=== PATIENT | female | born 1990 | race Caucasian/White ===

== ENCOUNTER 2018-02-20 16:53 | Emergency (ER) | payer MEDICAID, SELFPAY ==
[2018-02-20 16:54] VITALS: BP 118/76; PULSE 91; RESP 16; TEMP 36.2; O2SAT 99; BMI 25.5
[2018-02-20 17:36] LABS: Mucous, Urine 0 SEEN /hpf (<or=2+); Red Blood Cells-Urine 0 SEEN /hpf (0-5)
[2018-02-20 17:44] LABS: Color, Urine Yellow (Yellow); Glucose, Dipstick Normal (Normal); Ketone-Dipstick Negative (Negative); Leukocyte Esterase-Dipstick 500 /ul (Negative); Nitrite-Dipstick Negative (Negative); Occult Blood-Urine Negative /ul (Negative); Protein-Dipstick 15 mg/dl (Negative); Specific Gravity, Urine 1.015 (1.002-1.030); Urine Bilirubin Dipstick Negative (Negative); Urine Clarity Sl. Cloudy (Clear); Urine Urobilinogen Normal (Normal)
[2018-02-20 17:47] LABS: Internal QC Validated? YES +Cl - CLEAR BKGD; Pregnancy, Urine Negative Negative
[2018-02-20 18:04] LABS: Amorphous Sediment 2+; Squamous Epithelial Cells - UA 10-25 SEEN /hpf (5-10); White Blood Cells 10-25 SEEN /hpf (0-5)
[2018-02-20 18:06] LABS: Bacteria RARE /hpf (None Seen)
--- NOTE | 2018-02-20 18:17 | ED.VISSUMM ---
- ER Visit Summary Date of Service: 02/20/18 Chief Complaint: UTI History of Present Illness: The patient is a 27 F with UTI symptoms for the past 3 days. She states she has had prior UTIs with same symptoms. She reports dysuria and frequency. She does have some mild chills. Today she developed some mild back pain. Physical Examination: Vital signs are unremarkable. She is afebrile. Patient sitting upright in bed no acute distress. She is nontoxic appearing. Heart is regular rate and rhythm. Lung sounds are clear. Abdomen is soft with mild superpubic tenderness. She has very minimal left CVA tenderness. Test Results: Urinalysis reveals 500 leukocyte esterase with 10-25 white cells. Unfortunately she has had a 25 epithelial cells as well I do not think urine culture will be beneficial. Her test is negative. Emergency Department Course and Treatment: Patient is given Naprosyn and Azo here. She will be given a dose of Bactrim. She be treated with Bactrim and Pyridium at home. Treatment Plan: [] Disposition: Discharge Impression: Cystitis This note was generated with [employer] dictation software. It may contain incorrect words, spelling, and punctuation that were not noted in review of the chart prior to signing ED Disposition - Plan for ED Patient: Chief Complaint: Complaint Referrals: Care Physician,No Primary [Primary Care Provider] -
--- NOTE | 2018-02-20 18:18 | ED.DEP ---
ED Disposition - Plan for ED Patient: Disposition: Home or Assisted Living Chief Complaint: Complaint Instructions: ED UTI Cystitis Female Prescriptions: Phenazopyridine HCl [Pyridium] 200 mg PO BID PRN PRN #10 tablet PRN Reason: Pain Smz/Tmp Ds [Bactrim Ds] 1 tablet PO BID #6 tablet
[2018-02-20] MEDS: Phenazopyridine 95 MG Tablet 190 MG PO (18:19)
[2018-02-20] MEDS: Naproxen 500 MG Tablet PO (18:19)
[2018-02-20] MEDS: Smz/Tmp Ds Tablet 1 TABLET PO (18:27)
[2018-02-20 18:28] VITALS: BP 100/69; PULSE 96; RESP 15; O2SAT 98
== END 2018-02-20 18:29 | disposition home or self-care (01) ==
PROVIDERS: Emergency Provider Emergency Medicine
DX: N30.90 Cystitis, unspecified without hematuria (principal); Z87.440 Personal history of urinary (tract) infections
CPT/HCPCS: 81001; 81025; 99283